=== PATIENT | female | born 1940 | race Caucasian/White ===

== ENCOUNTER 2019-10-19 13:14 | Inpatient (IN) | payer MEDICARE ==
[~2019-10-19] VITALS: Ht 165.1 cm; Wt 91.6 kg
[2019-10-19] MEDS ORDERED: SODIUM CHLORIDE 0.9% 1000ML 1,000 ML IV STA (13:35)
[2019-10-19] MEDS ORDERED: DIATRIZOATE MEGL/DIATRIZOA SOD 30 ML BTL PO ONE (13:49)
[2019-10-19 13:54] LABS: BASOPHILS % 0.2 % (0.0-1.0); EOSINOPHILS % 0.3 % (0.0-6.0); HEMATOCRIT 38.5 % (34.2-44.1); HEMOGLOBIN 12.5 g/dL (12.0-16.0); LYMPHOCYTES # (AUTO) 1.8 (1.0-3.2); LYMPHOCYTES % 20.4 % (18.0-39.1); MEAN CORPUSCULAR HEMOGLOBIN 29.8 pg (28-32); MEAN CORPUSCULAR HGB CONC 32.5 g/dL (31-35); MEAN CORPUSCULAR VOLUME 91.9 fL (81-99); MONOCYTES # (AUTO) 0.6 (0.2-0.8); MONOCYTES % 7.4 % (4.4-11.3); NEUTROPHILS # (AUTO) 6.2 (2.1-6.9); NEUTROPHILS % 71.1 % (38.7-80.0); PLATELET COUNT 287 x10e3/uL (140-360); RED BLOOD COUNT 4.19 x10e6/uL (3.6-5.1); RED CELL DISTRIBUTION WIDTH 11.8 % (11.7-14.4)
[2019-10-19] MEDS ORDERED: PANTOPRAZOLE 40 MG 10ML VIAL IV ONE (14:00)
[2019-10-19] MEDS ORDERED: ONDANSETRON HCL INJ 2MG/ML 2ML 2 MG/ML VIAL IV ONE (14:00)
[2019-10-19 14:03] LABS: BILIRUBIN,URINE NEGATIVE (NEGATIVE); CLARITY,URINE SL CLOUDY (CLEAR); COLOR,URINE YELLOW (YELLOW); KETONES,URINE TRACE (NEGATIVE); LEUKOCYTE ESTERASE ,URINE TRACE (NEGATIVE); NITRITE,URINE NEGATIVE (NEGATIVE); PROTEIN,URINE DIPSTICK NEGATIVE (NEGATIVE); URINE UROBILINOGEN 0.2 mg/dL (0.2 - 1)
[2019-10-19 14:13] LABS: BACTERIA,URINE MODERATE /HPF; EPITHELIAL CELLS,URINE FEW /LPF; RBC,URINE 0-5 /HPF (0-5)
[2019-10-19 14:17] LABS: ALANINE AMINOTRANSFERASE 19 IU/L (0-55); ALBUMIN 3.7 g/dL (3.5-5.0); ALBUMIN/GLOBULIN RATIO 1.3 (0.8-2.0); ALKALINE PHOSPHATASE 60 IU/L (40-150); ANION GAP 15.6 mmol/L (8-16); BLOOD UREA NITROGEN 8 mg/dL (7-26); BUN/CREATININE RATIO 12 (6-25); CALCIUM 9.3 mg/dL (8.4-10.2); CARBON DIOXIDE 24 mmol/L (22-29); CHLORIDE 88 mmol/L (98-107); CREATINE KINASE 1296 IU/L (29-168); CREATININE, SERUM 0.69 mg/dL (0.57-1.11); EST GLOMERULAR FILTRATION RATE > 60 ML/MIN (60-); GLUCOSE 225 mg/dL (74-118); LIPASE 4 U/L (8-78); MAGNESIUM 1.6 MG/DL (1.3-2.1); POTASSIUM 4.6 mmol/L (3.5-5.1); SODIUM 123 mmol/L (136-145)
--- NOTE | 2019-10-19 14:52 | Diagnostic Imaging Report ---
EXAMINATION: CHEST SINGLE (PORTABLE) INDICATION: Abdominal pain COMPARISON: None FINDINGS: LINES/TUBES:EKG leads overlie the chest. LUNGS:The lungs are moderately inflated. There is perihilar fullness and indistinctness of the pulmonary vasculature. PLEURA:No pleural effusion or pneumothorax. MEDIASTINUM:The cardiomediastinal silhouette is at the upper limits of normal for size. BONES/SOFT TISSUES:No acute osseous injury. ABDOMEN:No free air under the diaphragm. IMPRESSION: Mild pulmonary interstitial edema. Borderline heart size. Signed by: Sravani Ruiz MD on 10/19/2019 2:49 PM
[2019-10-19] MEDS ORDERED: IOPAMIDOL 370 MG/ML 200 ML INFUS..BTL INJ ONE (15:19)
[2019-10-19] MEDS ORDERED: SODIUM CHLORIDE 0.9% 50ML 50 ML ONE (15:19)
[2019-10-19] MEDS ORDERED: DEXTROSE 50% SYRINGE 50 ML IV PRN ×2 (15:30→19:00)
[2019-10-19] MEDS ORDERED: ONDANSETRON HCL INJ 2MG/ML 2ML 2 MG/ML VIAL IV PRN (15:30)
--- NOTE | 2019-10-19 15:43 | Diagnostic Imaging Report ---
EXAM: CT Abdomen and Pelvis WITH intravenous contrast INDICATION: Right lower quadrant abdominal pain COMPARISON: None. TECHNIQUE: Abdomen and pelvis were scanned utilizing a multidetector helical scanner from the lung base to the pubic symphysis after administration of IV contrast. Coronal and sagittal reformations were obtained. Routine protocol was performed. Scan was performed during portal venous phase. IV CONTRAST: 100mL of Isovue 370 ORAL CONTRAST: Gastrografin RADIATION DOSE: Total DLP: 730.8 mGy*cm Dose modulation, iterative reconstruction, and/or weight based adjustment of the mA/kV was utilized to reduce the radiation dose to as low as reasonably achievable. FINDINGS: LOWER THORAX: Normal. HEPATOBILIARY: No focal hepatic lesions. No biliary ductal dilatation. Status post cholecystectomy. SPLEEN: No splenomegaly. PANCREAS: No focal masses or ductal dilatation. ADRENALS: No adrenal nodules. KIDNEYS/URETERS: No hydronephrosis, stones, or solid mass lesions. Right lower pole exophytic simple cyst measures up to 5.3 cm. PELVIC ORGANS/BLADDER: Status post hysterectomy. PERITONEUM / RETROPERITONEUM: No free air or fluid. LYMPH NODES: No lymphadenopathy. VESSELS: Diffuse atherosclerotic calcifications of the nonaneurysmal abdominal aorta and major branches appear GI TRACT: Diverticulosis without CT evidence of diverticulitis. No abnormal bowel wall thickening. No bowel obstruction. Appendix not well visualized, however there are no inflammatory changes in the right lower quadrant to suggest appendicitis. Duodenal diverticulum. BONES AND SOFT TISSUES: No acute osseous injury. Mild diffuse osteopenia. Mild multilevel degenerative changes. No suspicious lytic or blastic lesions. Small umbilical hernia containing small amount of mesenteric fat. IMPRESSION: No acute findings in the abdomen or pelvis. Signed by: Sravani Ruiz MD on 10/19/2019 3:39 PM
[2019-10-19] MEDS: PIPER-TAZ 3.375 GM 50 ML IV SCH ×2 (15:55→21:10)
[2019-10-19] MEDS: SODIUM CHLORIDE 0.9% 1000ML 1,000 ML IV SCH (15:55)
[2019-10-19] MEDS ORDERED: INSULIN LISPRO 100 UNIT/1 ML 3ML VIAL SQ SCH (16:30)
--- OUTSIDE RECORDS SUMMARY | 2019-10-19 16:37 | XMS REPORT ---
Author Author [facility] Address Unknown Phone Unavailable Care Team Providers Care Mixing Technician Name Role Phone Harini POMPA Unavailable Unavailable Problems This patient has no known problems. Allergies, Adverse Reactions, Alerts This patient has no known allergies or adverse reactions. Medications This patient has no known medications. Results Test Description Test Time Test Comments Text Results Atomic Results Result Comments CT ABDOMEN/PELVIS W 2019-10-19 15:31:00 [place] [address] Patient Name: MENDEZ MAX MR #: [id number] : 1940 Age/Sex: 79/F Req #: [id number] [facility] Physician: Ordered by: ZI POMPA MD Report #: [id number] Location: ER Room/Bed: Procedure: [id number] CT/CT ABDOMEN/PELVIS W Exam Date: 10/19/19 Exam Time: 1503 REPORT STATUS: Signed EXAM: CT Abdomen and Pelvis WITH intravenous contrast INDICATION: Right lower quadrant abdominal pain COMPARISON: None. TECHNIQUE: Abdomen and pelvis were scanned utilizing a multidetector helical scanner from the lung base to the pubic symphysis after administration of IV contrast. Coronal and sagittal reformations were obtained. Routine protocol was performed. Scan was performed during portal venous phase. IV CONTR AST: 100mL of Isovue 370 ORAL CONTRAST: Gastrografin RADIATION DOSE: Total DLP: 730.8 mGy*cm Dose modulation, iterative reconstruction, and/or weight based adjustment of the mA/kV was utilized to reduce the radiation dose to as low as reasonably achievable. FINDINGS: LOWER THORAX: Normal. HEPATOBILIARY: No focal hepatic lesions. No biliary ductal dilatation. Status post cholecystectomy. SPLEEN: No splenomegaly. PANCREAS: No focal masses or ductal dilatation. ADRENALS: No adrenal nodules. KIDNEYS/URETERS: No hydronephrosis, stones, or solid mass lesions. Right lower pole exophytic simple cyst measures up to 5.3 cm. PELVIC ORGANS/BLADDER: Status post hysterectomy. PERITONEUM / RETROPERITONEUM: No free air or fluid. LYMPH NODES: No lymphadenopathy. VESSELS: Diffuse atherosclerotic calcifications of the nonaneurysmal abdominal aorta and major branches appear GI TRACT: Diverticulosis without CT evidence of diverticulitis. No abnormal bowel wall thickening. No bowel obstruction. Appendix not well visualized, however there are no inflammatory changes in the right lower quadrant to suggest appendicitis. Duodenal diverticulum. BONES AND SOFT TISSUES: No acute osseous injury. Mild diffuse osteopenia. Mild multilevel degenerative changes. No suspicious lytic or blastic lesions. Small umbilical hernia containing small amount of mesenteric fat. IMPRESSION: No acute findings in the abdomen or pelvis. Signed by: Bassem Ruiz MD on 10/19/2019 3:39 PM Dictated By: BASSEM RUIZ MD 38 Transcribed By: ANGY on 10/19/191538 COPY TO: ZI POMPA MD CHEST SINGLE (PORTABLE) 2019-10-19 14:48:00 [place] [address] Patient Name: MENDEZ MAX MR #: [id number] : 1940 Age/Sex: 79/F Req #: [id number] Adm Physician: Ordered by: ZI POMPA MD Report #: [id number] Location: ER Room/Bed: Procedure: [id number] DX/CHEST SINGLE (PORTABLE) Exam Date: 10/19/19 Exam Time: 1440 REPORT STATUS: Signed EXAMINATION: CHEST SINGLE (PORTABLE) INDICATION: Abdominal pain COMPARISON: None FINDINGS: LINES/TUBES:EKG leads overlie the chest. LUNGS:The lungs are moderately inflated. There is perihilar fullness and indistinctness of the pulmonary vasculature. PLEURA:No pleural effusion or pneumothorax. MEDIASTINUM:The cardiomediastinal silhouette is at the upper limits of normal for size. BONES/SOFT TISSUES:No acute osseous injury. ABDOMEN:No free air under the diaphragm. IMPRESSION: Mild pulmonary interstitial edema. Borderline heart size. Signed by: Bassem Ruiz MD on 10/19/2019 2:49 PM Dictated By: BASSEM RUIZ MD [id number] Transcribed By: ANGY on 10/19/19 1449 COPY TO: ZI POMPA MD
[2019-10-19] MEDS ORDERED: PRAVASTATIN SOD40 MG PO (16:49)
[2019-10-19] MEDS ORDERED: METFORMIN HCL500 M1 PO (16:49)
[2019-10-19] MEDS ORDERED: JANUVIA100 MG PO (16:49)
[2019-10-19] MEDS ORDERED: CARVEDILOL25 MG PO (16:49)
[2019-10-19] MEDS ORDERED: LOSARTAN POTASS50 MG PO (16:49)
[2019-10-19] MEDS ORDERED: PANTOPRAZOLE SO40 MG PO (16:49)
[2019-10-19] MEDS ORDERED: SYNTHROID50 MCG PO (16:49)
[2019-10-19] MEDS ORDERED: AGGRENOX 25 MG-1 CAP PO (16:50)
[2019-10-19] MEDS ORDERED: AMLODIPINE BESYL5 MG PO (16:50)
[2019-10-19] MEDS: INSULIN LISPRO 100 UNIT/1 ML 3ML VIAL SQ SCH (20:59)
[2019-10-19 21:40] LABS: CREATINE KINASE MB 13.4 ng/mL (0-5.0)
[2019-10-19 21:48] VITALS: BP 151/71
--- NOTE | 2019-10-19 22:30 | NUR ---
RECEIVED PATIENT FROM ER AOX4, NO SIGNS OF DISTRESS NOTED. IV FLUIDS ARE RUNNING AT ORDERED RATE AND PATIENT VOICES PAIN IN TOES FROM A RECENT FALL AT A LEVEL OF 5 AND WILL BE PROMPTLY MEDICATED. BED IS IN LOWEST POSITION, BOTH SIDE RAILS ARE UP, CALL LIGHT WITHIN EASY REACH, WILL CONTINUE TO MONITOR.
[2019-10-19] MEDS: PRAVASTATIN 20 MG TAB PO SCH (22:45)
[2019-10-19 23:13] VITALS: BP 151/71
[2019-10-19 23:15] VITALS: BP 151/71
[2019-10-19] MEDS: ACETAMINOPHEN 325 MG TAB PO PRN (23:56)
[2019-10-20] VITALS (8 sets, daily range): BP systolic 131–173; BP diastolic 61–72
[2019-10-20] MEDS: PIPER-TAZ 3.375 GM 50 ML IV SCH ×4 (03:50→21:45)
[2019-10-20] MEDS: SODIUM CHLORIDE 0.9% 1000ML 1,000 ML IV SCH (03:50)
[2019-10-20 05:33] LABS: BASOPHILS % 0.6 % (0.0-1.0); EOSINOPHILS # (AUTO) 0.1 (0.0-0.4); EOSINOPHILS % 1.4 % (0.0-6.0); HEMOGLOBIN 11.7 g/dL (12.0-16.0); LYMPHOCYTES # (AUTO) 2.9 (1.0-3.2); LYMPHOCYTES % 45.4 % (18.0-39.1); MEAN CORPUSCULAR HEMOGLOBIN 30.8 pg (28-32); MEAN CORPUSCULAR HGB CONC 32.5 g/dL (31-35); MEAN CORPUSCULAR VOLUME 94.7 fL (81-99); MONOCYTES # (AUTO) 0.8 (0.2-0.8); MONOCYTES % 11.6 % (4.4-11.3); NEUTROPHILS # (AUTO) 2.6 (2.1-6.9); NEUTROPHILS % 40.4 % (38.7-80.0); PLATELET COUNT 199 x10e3/uL (140-360); RED CELL DISTRIBUTION WIDTH 11.9 % (11.7-14.4)
[2019-10-20 05:53] LABS: ALANINE AMINOTRANSFERASE 16 IU/L (0-55); ALBUMIN 3.1 g/dL (3.5-5.0); ALBUMIN/GLOBULIN RATIO 1.2 (0.8-2.0); ALKALINE PHOSPHATASE 51 IU/L (40-150); ANION GAP 12.1 mmol/L (8-16); BILIRUBIN,DIRECT 0.3 mg/dL (0.0-0.5); BLOOD UREA NITROGEN < 5 mg/dL (7-26); CALCIUM 8.7 mg/dL (8.4-10.2); CARBON DIOXIDE 24 mmol/L (22-29); CHLORIDE 99 mmol/L (98-107); CHOL/HDL RATIO 4.2 (3.0-3.6); CHOLESTEROL 163 MD/DL (0-199); CREATININE, SERUM 0.61 mg/dL (0.57-1.11); EST GLOMERULAR FILTRATION RATE > 60 ML/MIN (60-); GLUCOSE 143 mg/dL (74-118); HDL CHOLESTEROL 39 MG/DL (40-60); LDL CHOLESTEROL 92 MG/DL (60-130); OSMOLALITY,SERUM 262 mOsm/kg (278-305); POTASSIUM 4.1 mmol/L (3.5-5.1); SODIUM 131 mmol/L (136-145); TRIGLYCERIDES 159 MG/DL (0-149)
[2019-10-20 06:02] LABS: BUN/CREATININE RATIO 8 (6-25)
[2019-10-20 06:14] LABS: THYROID STIMULATING HORMONE 2.528 uIU/mL (0.350-4.940)
[2019-10-20 06:31] LABS: CREATINE KINASE MB 6.7 ng/mL (0-5.0)
[2019-10-20] MEDS: LEVOTHYROXINE SODIUM 50 MCG TAB PO SCH (06:55)
[2019-10-20] MEDS: CARVEDILOL 12.5 MG TAB PO SCH ×2 (08:33→16:23)
[2019-10-20] MEDS: LOSARTAN POTASSIUM 25 MG TAB PO SCH (08:33)
[2019-10-20] MEDS: SITAGLIPTIN 100 MG TAB PO SCH (08:34)
[2019-10-20] MEDS: INSULIN LISPRO 100 UNIT/1 ML 3ML VIAL SQ SCH ×4 (08:34→21:45)
[2019-10-20] MEDS: PANTOPRAZOLE SOD 40 MG TABEC PO SCH (08:34)
[2019-10-20] MEDS: AGGRENOX PO SCH (08:36)
--- NOTE | 2019-10-20 08:45 | NUR ---
Received pt from previous shift pt resting no c/o pain. Pt informed of schedule for the day
[2019-10-20] MEDS ORDERED: DIPYRIDAMOLE PO SCH (09:00)
[2019-10-20] MEDS ORDERED: AMLODIPINE BESYLATE 5 MG TAB PO SCH (09:00)
[2019-10-20] MEDS ORDERED: NON-FORMULARY MEDICATION (Losartan Potassium 50 MG) PO SCH (09:00)
[2019-10-20] MEDS ORDERED: NON-FORMULARY MEDICATION (Pravastatin Sodium 40 MG) PO SCH (09:00)
[2019-10-20] MEDS ORDERED: ASPIRIN PO SCH (09:00)
[2019-10-20] MEDS ORDERED: [UNRECOGNIZED DRUG - OTHER] PO SCH (09:00)
[2019-10-20] MEDS ORDERED: NON-FORMULARY MEDICATION (Carvedilol 25 MG) PO SCH (09:00)
--- NOTE | 2019-10-20 09:00 | NUR ---
Echo at bedside
--- NOTE | 2019-10-20 15:25 | NUR ---
Attempted x2 to draw pt blood for lab, unsuccessful. Lab notified.
[2019-10-20 17:15] LABS: CREATINE KINASE MB 5.8 ng/mL (0-5.0)
--- NOTE | 2019-10-20 17:45 | NUR ---
dr pressley notified via phone of pt sodium level 132. no new orders obtained
--- NOTE | 2019-10-20 18:40 | NUR ---
pt sitting up visiting with family. pt in no distress, report given to oncoming shift
[2019-10-20] MEDS: PRAVASTATIN 20 MG TAB PO SCH (21:45)
--- NOTE | 2019-10-20 21:45 | NUR ---
PATIENT RESTING IN BED WITH BOTH EYES CLOSED, NO SIGNS OF RESPIRATORY DISTRESS NOTED. PATIENT VOICES NO PAIN AT THIS TIME AND COMPLAINS OF DIARRHEA. BED IS IN LOWEST POSITION, BOTH SIDE RAILS ARE UP, CALL LIGHT WITHIN EASY REACH, WILL CONTINUE TO MONITOR.
--- NOTE | 2019-10-20 23:22 | Consultation ---
DATE OF CONSULTATION: Nephrology Consultation REASON FOR CONSULTATION: Hyponatremia. HISTORY OF PRESENT ILLNESS: This is an 79-year-old female, who has apparently a history of chronic hyponatremia about two years ago after having some diarrhea, although she does report that she lives her normal sodium levels approximately 128 to 130, came in with underlying abdominal pain, nausea, vomiting, and diarrhea. The patient reportedly has had similar findings about two years ago in terms of her sodium being very low. She does not take any salt tabs or any other medications to elevate her sodium. The patient was seen and evaluated at bedside on the medical floor. She is currently doing well. No other complaints. Denies any [id number]-[id number] medications. No herbal supplements. Denies taking any diuretics at home. Denies drinking too much water. No reports of any hypothyroidism. The patient's vital signs were stable when I evaluated her. REVIEW OF SYSTEMS: Pertinent positives: Nausea, vomiting, abdominal pain, diarrhea. Pertinent negatives: Denies any chest pain, palpitation, dysuria, hematuria, frequency, urgency, lightheadedness, dizziness, fever, cough, or any other complaints. The rest of 14-point review of systems have been reviewed with the patient and are negative. ALLERGIES: SULFA AND HYDROCHLOROTHIAZIDE. HOME MEDICATIONS: 1. Amlodipine. 2. Coreg. 3. Aggrenox. 4. Levothyroxine. 5. Losartan. 6. Protonix. 7. Pravastatin. 8. Januvia. PAST MEDICAL HISTORY: Type 2 diabetes, hypertension, history of chronic hyponatremia. PAST SURGICAL HISTORY: Reports none. FAMILY HISTORY: Hypertension, diabetes. SOCIAL HISTORY: No drugs, no alcohol, does not smoke. Good social support. PHYSICAL EXAMINATION: VITAL SIGNS: Temperature is 96.3, pulse 65, respiratory rate is 18, blood pressure is 149/67, pulse ox 97% on room air. GENERAL: No acute distress, alert and oriented x3. Cooperative on examination. HEENT: Head normocephalic, atraumatic. Eyes; pupils are equal, round, and reactive to light bilaterally. Extraocular movements intact bilaterally. NECK: Supple. Good range of motion. Throat; no evidence of erythema or exudates in the posterior pharynx. Has poor dentition. PULMONARY: Clear to auscultation bilaterally. No wheezing, rales, or rhonchi. No crackles appreciated. CARDIOVASCULAR: Positive S1, S2. No murmurs, rubs, or gallops appreciated. ABDOMEN: Soft, nondistended, and nontender to palpation. Bowel sounds present. MUSCULOSKELETAL: Strength is 5/5 throughout. No evidence of any muscle deficits on examination. No weakness appreciated. NEUROLOGIC: Cranial nerves II through XII grossly intact. No evidence of any neurological deficits on exam. SKIN: Intact. Warm to touch. Good cap refill. PSYCHIATRIC: Normal affect and mood. EXTREMITIES: No edema. Good range of motion throughout. LABORATORY FINDINGS: Show white count is 6.4, hemoglobin 11.7, hematocrit 36, platelets of 199. Chemistry; sodium 131, on admission it was 123, now 131, potassium 4.1, chloride 99, bicarb 24, anion gap of 12, BUN is less than 5, creatinine is 0.61, glucose is 143. LFTs within normal range. Total bilirubin is 5.7, albumin is 3.1, LDL 92, TSH 2.5. Urinalysis negative. Urine cultures are pending, but no growth today. Stool cultures are pending. IMAGING STUDIES: Chest x-ray shows some mild pulmonary interstitial edema. CT abdomen and pelvis shows no acute findings in the abdomen or pelvis. IMPRESSION: 1. Hypotonic euvolemic hyponatremic. 2. Chronic hyponatremia. 3. Probable urinary tract infection. 4. Abdominal pain, nausea, vomiting. PLAN: At this time, from a renal standpoint, her sodium is much improved at 131. I did order a stat sodium level now and told the nurse to call me with the results. She is otherwise doing well. She is tolerating diet well. She is drinking fluids. She does report to me she has chronic hyponatremia, has been ongoing for the last two years of note. She said her sodium level usually is between 128 and 130. We will get urine lytes to eval and treat. No need for renal ultrasound at this time. Otherwise, we will continue same plan of care and monitor closely. MD URIEL Flores/RICH /[id number]
[2019-10-20] MEDS ORDERED: DICYCLOMINE HCL 10 MG CAP PO ONE (23:30)
[2019-10-21] VITALS (9 sets, daily range): BP systolic 119–180; BP diastolic 56–86
[2019-10-21] MEDS: PIPER-TAZ 3.375 GM 50 ML IV SCH ×4 (03:35→20:35)
[2019-10-21 03:59] LABS: BASOPHILS % 0.6 % (0.0-1.0); EOSINOPHILS # (AUTO) 0.1 (0.0-0.4); EOSINOPHILS % 1.6 % (0.0-6.0); HEMATOCRIT 37.5 % (34.2-44.1); HEMOGLOBIN 12.5 g/dL (12.0-16.0); LYMPHOCYTES # (AUTO) 2.9 (1.0-3.2); LYMPHOCYTES % 42.4 % (18.0-39.1); MEAN CORPUSCULAR HEMOGLOBIN 30.5 pg (28-32); MEAN CORPUSCULAR HGB CONC 33.3 g/dL (31-35); MONOCYTES # (AUTO) 0.8 (0.2-0.8); MONOCYTES % 11.2 % (4.4-11.3); NEUTROPHILS # (AUTO) 2.9 (2.1-6.9); NEUTROPHILS % 43.5 % (38.7-80.0); PLATELET COUNT 263 x10e3/uL (140-360); RED CELL DISTRIBUTION WIDTH 11.9 % (11.7-14.4)
[2019-10-21 04:15] LABS: ANION GAP 13.5 mmol/L (8-16); BLOOD UREA NITROGEN < 5 mg/dL (7-26); CALCIUM 9.3 mg/dL (8.4-10.2); CARBON DIOXIDE 25 mmol/L (22-29); CHLORIDE 100 mmol/L (98-107); CREATININE, SERUM 0.65 mg/dL (0.57-1.11); EST GLOMERULAR FILTRATION RATE > 60 ML/MIN (60-); GLUCOSE 136 mg/dL (74-118); POTASSIUM 3.5 mmol/L (3.5-5.1); SODIUM 135 mmol/L (136-145)
[2019-10-21 04:16] LABS: BUN/CREATININE RATIO 8 (6-25)
[2019-10-21 04:17] LABS: MEAN CORPUSCULAR VOLUME 91.5 fL (81-99)
[2019-10-21] MEDS: ACETAMINOPHEN 325 MG TAB PO PRN (05:56)
[2019-10-21] MEDS: LEVOTHYROXINE SODIUM 50 MCG TAB PO SCH (05:56)
--- NOTE | 2019-10-21 07:00 | NUR ---
RCD PT AT BED PT IS ALERT AND ORIENTED PT RESTING ON BED IV PATENT BED LOW AND LOCKED CALL LIGHT IN REACH
[2019-10-21] MEDS: INSULIN LISPRO 100 UNIT/1 ML 3ML VIAL SQ SCH ×4 (07:30→20:35)
[2019-10-21 08:08] LABS: WBC,FECAL (FECAL LACTOFERRIN) NEGATIVE (NEGATIVE)
[2019-10-21] MEDS: SITAGLIPTIN 100 MG TAB PO SCH (09:00)
[2019-10-21] MEDS: AMLODIPINE BESYLATE 5 MG TAB PO SCH ×2 (09:00→17:00)
[2019-10-21] MEDS: DICYCLOMINE HCL 10 MG CAP PO SCH ×3 (09:00→20:35)
[2019-10-21] MEDS: CARVEDILOL 12.5 MG TAB PO SCH ×2 (09:00→16:00)
[2019-10-21] MEDS: PANTOPRAZOLE SOD 40 MG TABEC PO SCH (09:00)
[2019-10-21] MEDS: LOSARTAN POTASSIUM 25 MG TAB PO SCH (09:00)
[2019-10-21] MEDS: AGGRENOX PO SCH (09:00)
--- NOTE | 2019-10-21 13:04 | Progress Note ---
DATE: 10/21/2019 Nephrology Progress Note SUBJECTIVE: The patient is doing well today with no complaints. The patient's sodium level much improved. PHYSICAL EXAMINATION: VITAL SIGNS: Temperature is 98, pulse 76, respiratory rate is 18, blood pressure 149/86, and pulse ox 97% on room air. GENERAL: Not in acute distress. Alert and oriented x3. Cooperative on examination. HEENT: Head; normocephalic, atraumatic. Eyes; pupils are equal, round, and reactive to light bilaterally. Extraocular movements intact bilaterally. Throat; no evidence of erythema or exudates in the posterior pharynx. Has poor dentition. NECK: Supple. Good range of motion. PULMONARY: Clear to auscultation bilaterally. No wheezing, no rales, no rhonchi, no crackles appreciated. CARDIOVASCULAR: Positive S1 and S2. No murmurs, rubs, or gallops appreciated. ABDOMEN: Soft, nondistended, and nontender to palpation. Bowel sounds present. MUSCULOSKELETAL: Strength is 5/5 throughout. No evidence of any muscle deficits on examination. No weakness appreciated. NEUROLOGIC: Cranial nerves II through XII grossly intact. No evidence of any neurological deficits on exam. SKIN: Intact. Warm to touch. Good cap refill. PSYCHIATRIC: Normal affect and mood. EXTREMITIES: No edema. Good range of motion throughout. LABORATORY FINDINGS: Show white count 6.2, hemoglobin 12.5, hematocrit is 37, and platelets of 263. Chemistry; sodium 135, potassium 3.5, chloride 100, bicarb 25, anion gap of 13, BUN is 5, creatinine is 0.65, and glucose 193. IMPRESSION: 1. Hypotonic hypovolemic hyponatremic. 2. Diarrhea, concerning for underlying viral gastroenteritis. PLAN: At this time, sodium level has improved to 135. Electrolytes are stable. We will continue with same plan of care and monitor very closely. IV fluids. Symptomatic treatment for now. Follow with the primary team. We will repeat labs in the morning. Replace electrolytes accordingly. MD URIEL Flores/MODMoira /[id number]
[2019-10-21 14:15] LABS: C DIFFICILE TOXIN A&B AMP PROB NEGATIVE (NEGATIVE)
--- NOTE | 2019-10-21 16:00 | NUR ---
PT FEEL BETTER TODAY SHE DONT HAVE ANY ABDOMINAL CRAMPING IN ABDOMEN 4 TIMES DIARRHOEA
--- NOTE | 2019-10-21 18:39 | NUR ---
PT RESTING ON BED BED SIDE REPORT GIVEN TO ONCOMING NURSE
[2019-10-21] MEDS: PRAVASTATIN 20 MG TAB PO SCH (20:35)
--- NOTE | 2019-10-21 20:35 | NUR ---
PATIENT IS AOX4, NO SIGNS OF RESPIRATORY DISTRESS NOTED. PATIENT VOICES NO PAIN AT THIS TIME AND STATES THAT SHE HAS BEEN GOING TO THE RESTROOM LESS SINCE TAKING MEDICATION. BED IS IN LOWEST POSITION, BOTH SIDE RAILS ARE UP, CALL LIGHT WITHIN EASY REACH, WILL CONTINUE TO MONITOR.
[2019-10-22] VITALS (9 sets, daily range): BP systolic 134–155; BP diastolic 63–83
[2019-10-22] MEDS: ACETAMINOPHEN 325 MG TAB PO PRN ×2 (01:59→21:15)
[2019-10-22] MEDS: PIPER-TAZ 3.375 GM 50 ML IV SCH ×4 (03:20→21:15)
[2019-10-22 05:18] LABS: BASOPHILS # (AUTO) 0.1 (0.0-0.1); BASOPHILS % 0.6 % (0.0-1.0); EOSINOPHILS # (AUTO) 0.2 (0.0-0.4); EOSINOPHILS % 1.7 % (0.0-6.0); HEMATOCRIT 40.6 % (34.2-44.1); HEMOGLOBIN 13.1 g/dL (12.0-16.0); LYMPHOCYTES # (AUTO) 3.8 (1.0-3.2); LYMPHOCYTES % 43.3 % (18.0-39.1); MEAN CORPUSCULAR HEMOGLOBIN 30.3 pg (28-32); MEAN CORPUSCULAR HGB CONC 32.3 g/dL (31-35); MEAN CORPUSCULAR VOLUME 93.8 fL (81-99); MONOCYTES # (AUTO) 0.8 (0.2-0.8); MONOCYTES % 9.4 % (4.4-11.3); NEUTROPHILS # (AUTO) 3.9 (2.1-6.9); NEUTROPHILS % 44.2 % (38.7-80.0); PLATELET COUNT 286 x10e3/uL (140-360); RED BLOOD COUNT 4.33 x10e6/uL (3.6-5.1); RED CELL DISTRIBUTION WIDTH 11.9 % (11.7-14.4)
[2019-10-22 05:43] LABS: ANION GAP 15.8 mmol/L (8-16); BLOOD UREA NITROGEN 5 mg/dL (7-26); BUN/CREATININE RATIO 7 (6-25); CALCIUM 9.1 mg/dL (8.4-10.2); CARBON DIOXIDE 23 mmol/L (22-29); CHLORIDE 97 mmol/L (98-107); CREATININE, SERUM 0.73 mg/dL (0.57-1.11); EST GLOMERULAR FILTRATION RATE > 60 ML/MIN (60-); GLUCOSE 162 mg/dL (74-118); POTASSIUM 3.8 mmol/L (3.5-5.1); SODIUM 132 mmol/L (136-145)
[2019-10-22] MEDS: LEVOTHYROXINE SODIUM 50 MCG TAB PO SCH (05:47)
[2019-10-22] MEDS: INSULIN LISPRO 100 UNIT/1 ML 3ML VIAL SQ SCH ×4 (07:35→22:00)
[2019-10-22] MEDS: CARVEDILOL 12.5 MG TAB PO SCH ×2 (08:45→16:59)
[2019-10-22] MEDS: DICYCLOMINE HCL 10 MG CAP PO SCH ×3 (08:45→21:15)
[2019-10-22] MEDS: AMLODIPINE BESYLATE 5 MG TAB PO SCH ×2 (08:45→16:59)
[2019-10-22] MEDS: SITAGLIPTIN 100 MG TAB PO SCH (08:55)
[2019-10-22] MEDS: PANTOPRAZOLE SOD 40 MG TABEC PO SCH (09:00)
[2019-10-22] MEDS: LOSARTAN POTASSIUM 25 MG TAB PO SCH (09:00)
[2019-10-22] MEDS: AGGRENOX PO SCH ×2 (09:00→15:57)
--- NOTE | 2019-10-22 19:26 | NUR ---
Patient received lying in bed. AAO x 4. Patient had no complaints of pain. Respirations even and non-labored. Safety measures in place. Patient instructed to call for assistance when needed. Call light within reach.
[2019-10-22] MEDS: PRAVASTATIN 20 MG TAB PO SCH (21:15)
[2019-10-23] VITALS (7 sets, daily range): BP systolic 130–187; BP diastolic 60–78
--- NOTE | 2019-10-23 03:10 | NUR ---
Blood specimen sent to lab .
[2019-10-23 03:13] LABS: BASOPHILS # (AUTO) 0.1 (0.0-0.1); BASOPHILS % 0.7 % (0.0-1.0); EOSINOPHILS # (AUTO) 0.2 (0.0-0.4); EOSINOPHILS % 1.8 % (0.0-6.0); HEMATOCRIT 38.8 % (34.2-44.1); LYMPHOCYTES # (AUTO) 4.9 (1.0-3.2); LYMPHOCYTES % 44.8 % (18.0-39.1); MEAN CORPUSCULAR HEMOGLOBIN 30.6 pg (28-32); MEAN CORPUSCULAR HGB CONC 33.5 g/dL (31-35); MEAN CORPUSCULAR VOLUME 91.3 fL (81-99); NEUTROPHILS # (AUTO) 4.6 (2.1-6.9); NEUTROPHILS % 42.8 % (38.7-80.0); PLATELET COUNT 299 x10e3/uL (140-360); RED BLOOD COUNT 4.25 x10e6/uL (3.6-5.1)
[2019-10-23] MEDS: PIPER-TAZ 3.375 GM 50 ML IV SCH ×4 (03:32→20:48)
[2019-10-23 03:34] LABS: ANION GAP 13.9 mmol/L (8-16); BLOOD UREA NITROGEN 8 mg/dL (7-26); BUN/CREATININE RATIO 11 (6-25); CALCIUM 9.3 mg/dL (8.4-10.2); CARBON DIOXIDE 24 mmol/L (22-29); CHLORIDE 97 mmol/L (98-107); CREATINE KINASE 144 IU/L (29-168); CREATININE, SERUM 0.75 mg/dL (0.57-1.11); EST GLOMERULAR FILTRATION RATE > 60 ML/MIN (60-); GLUCOSE 133 mg/dL (74-118); MAGNESIUM 1.7 MG/DL (1.3-2.1); POTASSIUM 3.9 mmol/L (3.5-5.1); SODIUM 131 mmol/L (136-145)
[2019-10-23] MEDS: LEVOTHYROXINE SODIUM 50 MCG TAB PO SCH (05:29)
--- NOTE | 2019-10-23 07:00 | NUR ---
Patient resting comfortably. Walking rounds done. Shift report given to oncoming nurse.
--- NOTE | 2019-10-23 07:02 | NUR ---
Walkning rounds complete and report recd for continuity of care
[2019-10-23] MEDS: INSULIN LISPRO 100 UNIT/1 ML 3ML VIAL SQ SCH ×4 (07:30→21:00)
[2019-10-23] MEDS: DICYCLOMINE HCL 10 MG CAP PO SCH ×5 (08:42→20:48)
[2019-10-23] MEDS: CARVEDILOL 12.5 MG TAB PO SCH ×2 (08:42→08:44)
[2019-10-23] MEDS: PANTOPRAZOLE SOD 40 MG TABEC PO SCH (08:43)
[2019-10-23] MEDS: LOSARTAN POTASSIUM 25 MG TAB PO SCH (08:43)
[2019-10-23] MEDS: AMLODIPINE BESYLATE 5 MG TAB PO SCH ×2 (08:43→08:45)
[2019-10-23] MEDS: SITAGLIPTIN 100 MG TAB PO SCH (08:45)
[2019-10-23] MEDS: AGGRENOX PO SCH (08:45)
[2019-10-23] MEDS: PRAVASTATIN 20 MG TAB PO SCH (08:46)
--- NOTE | 2019-10-23 11:49 | Progress Note ---
DATE: 10/23/2019 Nephrology Progress Note SUBJECTIVE: The patient is doing well today with no complaints. No overnight events. PHYSICAL EXAMINATION: VITAL SIGNS: Temperature 96.1, pulse 87, respiratory rate is 19, blood pressure is actually elevated at 187/78, pulse ox 96% on room air. GENERAL: Not in acute distress. Alert and oriented x3. Cooperative on examination. HEENT: Head; normocephalic, atraumatic. Eyes; pupils are equal, round, and reactive to light bilaterally. Extraocular movements intact bilaterally. Throat; no evidence of erythema or exudates in the posterior pharynx. Has poor dentition. NECK: Supple. Good range of motion. PULMONARY: Clear to auscultation bilaterally. No wheezing, no rales, no rhonchi, no crackles appreciated. CARDIOVASCULAR: Positive S1 and S2. No murmurs, rubs, or gallops appreciated. ABDOMEN: Soft, nondistended, and nontender to palpation. Bowel sounds present. MUSCULOSKELETAL: Strength is 5/5 throughout. No evidence of any muscle deficits on examination. No weakness appreciated. NEUROLOGIC: Cranial nerves 2 through 12 grossly intact. No evidence of any neurological deficits on exam. SKIN: Intact. Warm to touch. Good cap refill. PSYCHIATRIC: Normal affect and mood. EXTREMITIES: No edema. Good range of motion throughout. LABORATORY FINDINGS: Show white count is 10.8. Rest of the CBC is stable. Chemistry; sodium 131, potassium 3.9, chloride 97, bicarb 24, anion gap of 13, BUN is 8, creatinine is 0.75. Stool samples are pending for cultures. IMAGING STUDIES: None. IMPRESSION: 1. Hypotonic hypovolemic hyponatremic. 2. Diarrhea pending stool cultures. 3. Hypertension. PLAN: At this time, sodium level is stable. Electrolytes are stable. No further workup needed. I will go ahead and adjust antihypertensive medications accordingly by increasing the losartan to 100 mg daily and monitor her very closely. MD URIEL Flores/MODL /[id number]
[2019-10-24] VITALS (8 sets, daily range): BP systolic 123–171; BP diastolic 64–79
[2019-10-24] MEDS: PIPER-TAZ 3.375 GM 50 ML IV SCH ×3 (03:30→15:56)
[2019-10-24 05:05] LABS: BASOPHILS % 0.5 % (0.0-1.0); EOSINOPHILS # (AUTO) 0.2 (0.0-0.4); EOSINOPHILS % 2.5 % (0.0-6.0); HEMATOCRIT 37.4 % (34.2-44.1); HEMOGLOBIN 12.3 g/dL (12.0-16.0); LYMPHOCYTES # (AUTO) 3.3 (1.0-3.2); MEAN CORPUSCULAR HGB CONC 32.9 g/dL (31-35); MEAN CORPUSCULAR VOLUME 91.2 fL (81-99); MONOCYTES # (AUTO) 0.7 (0.2-0.8); MONOCYTES % 9.4 % (4.4-11.3); NEUTROPHILS # (AUTO) 3.4 (2.1-6.9); NEUTROPHILS % 43.9 % (38.7-80.0); PLATELET COUNT 295 x10e3/uL (140-360); RED CELL DISTRIBUTION WIDTH 11.9 % (11.7-14.4)
[2019-10-24 05:26] LABS: ANION GAP 12.8 mmol/L (8-16); BLOOD UREA NITROGEN 9 mg/dL (7-26); BUN/CREATININE RATIO 13 (6-25); CALCIUM 9.4 mg/dL (8.4-10.2); CARBON DIOXIDE 25 mmol/L (22-29); CHLORIDE 98 mmol/L (98-107); EST GLOMERULAR FILTRATION RATE > 60 ML/MIN (60-); GLUCOSE 158 mg/dL (74-118); POTASSIUM 3.8 mmol/L (3.5-5.1); SODIUM 132 mmol/L (136-145)
[2019-10-24] MEDS: LEVOTHYROXINE SODIUM 50 MCG TAB PO SCH (06:35)
--- NOTE | 2019-10-24 07:00 | NUR ---
Patient received sitting up in bed. AAO x 4. No acute distress noted. Call light within reach.
[2019-10-24] MEDS: INSULIN LISPRO 100 UNIT/1 ML 3ML VIAL SQ SCH ×3 (07:35→16:50)
[2019-10-24] MEDS ORDERED: LOSARTAN POTASSIUM 100 MG TAB PO SCH (09:00)
[2019-10-24] MEDS: DICYCLOMINE HCL 10 MG CAP PO SCH ×2 (10:13→15:56)
[2019-10-24] MEDS: AMLODIPINE BESYLATE 5 MG TAB PO SCH ×2 (10:14→15:57)
[2019-10-24] MEDS: PANTOPRAZOLE SOD 40 MG TABEC PO SCH (10:14)
[2019-10-24] MEDS: CARVEDILOL 12.5 MG TAB PO SCH ×2 (10:14→15:57)
[2019-10-24] MEDS: SITAGLIPTIN 100 MG TAB PO SCH (10:14)
[2019-10-24] MEDS: AGGRENOX PO SCH (10:17)
--- NOTE | 2019-10-24 13:58 | NUR ---
IMM letter delivered and explained to pt. She verbalized understanding. Signed copy placed in chart. Copy to pt's transition of care folder. Pt states she's ready to go home. Her son and daughter in law will provide transportation on discharge.
--- NOTE | 2019-10-24 16:45 | Progress Note ---
DATE: 10/24/2019 Nephrology Progress Note SUBJECTIVE: The patient is doing well today with no complaints. PHYSICAL EXAMINATION: VITAL SIGNS: Temperature is afebrile, blood pressure was elevated at 171/69, pulse is 90, respiratory rate is 20, pulse ox 97% on room air GENERAL: Not in acute distress. Alert and oriented x3. Cooperative on examination. HEENT: Head; normocephalic, atraumatic. Eyes; pupils are equal, round, and reactive to light bilaterally. Extraocular movements intact bilaterally. Throat; no evidence of erythema or exudates in the posterior pharynx. Has poor dentition. NECK: Supple. Good range of motion. PULMONARY: Clear to auscultation bilaterally. No wheezing, rales, or rhonchi, no crackles appreciated. CARDIOVASCULAR: Positive S1 and S2. No murmurs, rubs, or gallops appreciated. ABDOMEN: Soft, nondistended, and nontender to palpation. Bowel sounds present. MUSCULOSKELETAL: Strength is 5/5 throughout. No evidence of any muscle deficits on examination. No weakness appreciated. NEUROLOGIC: Cranial nerve II through XII grossly intact. No evidence of any neurological deficits on exam. SKIN: Intact. Warm to touch. Good cap refill. PSYCHIATRIC: Normal affect and mood. EXTREMITIES: No edema. Good range of motion throughout. LABORATORY DATA: Labs show sodium 132. The rest of chemistries are stable. CBC stable IMPRESSION: 1. Hypotonic euvolemic hyponatremia. 2. Diarrhea with negative stool culture. 3. Hypertension. PLAN: At this time sodium is much improved, electrolytes are stable. Continue to monitor very closely. Her blood pressure was elevated, but we just changed her losartan yesterday, which seems to have controlled her blood pressure yesterday. This morning the blood pressure was elevated. We will wait to see if she takes affect in terms of the losartan that was given. If not, we will add more medications. MD URIEL Flores/MODL /[id number]
[2019-10-24] MEDS ORDERED: COZAAR100 MG PO (17:03)
--- NOTE | 2019-10-24 18:09 | NUR ---
DR. HENDRIX CALLED. OKAY TO DC PATIENT PER SIMEON. ORDERS RECEIVED FROM SLADE DARLING TO DC PATIENT IF OKAY WITH DR. HENDRIX. ORDERS PUT IN AT THIS TIME.
--- NOTE | 2019-10-24 18:25 | NUR ---
Nutrition Screen Note RD Recommendation for Physician: -Continue ADA Diet Plan of Care: RD following, monitoring for tolerance and adequacy Nutrition reason for involvement: length of stay Primary Diagnose(s): abdominal, pain, dehydration, diarrhea, hyponatremia, rhabdomyolysis, and UTI PMH: type 2 diabetes, HTN, chronic hyponatremia Ht: 65 in Wt:202 lb BMI:33.6 kg/m2 IBW:[address] Assessment: (10/24/19) Chart reviewed. Labs and meds reviewed. Pt is an 79 year old female admitted with abdominal, pain, dehydration, diarrhea, hyponatremia, rhabdomyolysis, and UTI. Pt stated she has been eating all of her meals. Pt reported her wt has been stable and usually weighs 199 lbs. Pt currently has a wt of 202 lbs in chart. No N/V/D/C or chewing/swallowing issues reported at this time. Will continue to monitor Current Diet: ADA/low lactate Malnutrition Evaluation (10/24/19) The patient does not meet criteria for a specified degree of malnutrition at this time. Will re-evaluate at follow-up as appropriate. Diet Education Needs Assessment: Pt was interested in diabetic diet education Learner(s): pt Barriers: No barriers identified Cultural/Language Modifications: No cultural/language modifications noted Readiness: eager Method: explanation/ discussion, handout Topics: diabetic diet/carbohydrate counting Understanding/Compliance: pt verbalized understanding Nutrition Care Level: low Signed: Nancy Ha, RD, LD
--- NOTE | 2019-10-24 18:51 | NUR ---
PATIENTS SON CALLED AT THIS TIME TO NOTIFY HE IS ON HIS WAY TO BEHAVIORAL SCIENTIST PATIENT.
--- NOTE | 2019-10-24 19:01 | NUR ---
IV REMOVED AT THIS TIME WITHOUT COMPLICATION. TELEMETRY BOX REMOVED.
--- NOTE | 2019-10-24 19:45 | NUR ---
Patient given discharge instructions. Patient verbalized understanding. Learning barriers addressed. Patient transported to private auto via wheelchair. Vital wilmer WNL.
--- NOTE | 2019-10-25 17:51 | Discharge Summary ---
CONSULTING PHYSICIANS: Olvin Espinoza MD, GI; Ramiro Louie MD, Nephrology. CHIEF COMPLAINT: Abdominal pain, dehydration, diarrhea, rhabdo. ALLERGIES: HYDROCHLOROTHIAZIDE, SULFA. HOSPITAL COURSE: This is an 79-year-old female, who got admitted with complaints of abdominal pain, diarrhea for the past 3 days associated with nausea, but denied vomiting. Upon arrival to ER, the lab review showed sodium level of 128, which she received IV fluids. The patient got evaluated by GI and Nephrology. Currently, her lab review showed sodium of 132, which has been improved. Diarrhea resolved. All stool cultures and Clostridium difficile negative. She did get IV Zosyn for [address] of the abdomen showed no acute findings in the abdomen or pelvis. MEDICATIONS: She is advised to received home medications. 1. Norvasc 5 mg daily. 2. Coreg 25 mg twice daily. 3. Losartan 100 mg p.o. daily. 4. Levothyroxine 50 mcg daily. 5. Metformin 500 mg twice. 6. Protonix 40 mg daily. 7. Pravastatin 40 mg daily. 8. Januvia 100 mg daily. PHYSICAL EXAMINATION: VITAL SIGNS: Temperature 96.1, heart rate 90, blood pressure 148/66, respiratory rate 20, and oxygen saturation is 97%. GENERAL: No acute distress, alert and oriented. LUNGS: Clear to auscultation. CARDIOVASCULAR: Regular rate and rhythm. NECK: Supple. HEENT: Moist mucous membranes. ABDOMEN: Soft and nontender. EXTREMITIES: No edema. NEUROLOGICAL: Nonfocal. LABORATORY DATA: Labs from 10/24/2019, sodium is 132, potassium is 3.8, chloride 98, CO2 is 25, BUN 9, creatinine 0.70, glucose 158. WBC 7.68, hemoglobin 12.3, hematocrit 37.4, platelets are 295. DIAGNOSES: 1. Hypertension. 2. Type 2 diabetes. 3. Abdominal pain and diarrhea have been resolved. All stool cultures are negative. The patient upon discharge is stable. Follow up with primary care physician and GI as outpatient. Dictated by Shana Yi NP MD ABDON Sierra/RICH /[id number]
== END 2019-10-24 19:46 | disposition home or self-care (01) | DRG 558 ==
LOC: ER 13:32 → ERHOLD 15:21 → MED/SURG2 21:25
PROVIDERS: ADMIT Internal Medicine; ATTEND Internal Medicine
DX: M62.82 Rhabdomyolysis (principal); E87.1 Hypo-osmolality and hyponatremia; N30.00 Acute cystitis without hematuria; A08.4 Viral intestinal infection, unspecified; I10 Essential (primary) hypertension; Z88.2 Allergy status to sulfonamides; Z88.8 Allergy status to other drugs, medicaments and biological substances; E11.9 Type 2 diabetes mellitus without complications; K21.9 Gastro-esophageal reflux disease without esophagitis; E78.5 Hyperlipidemia, unspecified; E03.9 Hypothyroidism, unspecified; E86.0 Dehydration; Z80.42 Family history of malignant neoplasm of prostate; Z83.3 Family history of diabetes mellitus; Z79.84 Long term (current) use of oral hypoglycemic drugs
CPT/HCPCS: 36415; 71045; 74177; 80048; 80053; 80061; 81001; 82248; 82550; 82553; 82947; 82948; 83036; 83630; 83690; 83735; 83880; 83935; 84295; 84300; 84443; 84484; 84520; 85025; 87045; 87086; 87177; 87493; 93005; 93306; 96372; 99284; J2405; J2543; J7030; Q9967

== ENCOUNTER 2023-02-12 22:12 | Emergency (ER) | payer MEDICARE ==
[~2023-02-12] VITALS: Ht 165.1 cm; Wt 91.6 kg
[~2023-02-12 22:12] MED LIST: AGGRENOX 25 MG-1 CAP PO; AMLODIPINE BESYL5 MG PO; CARVEDILOL25 MG PO; COZAAR100 MG PO; JANUVIA100 MG PO; LOSARTAN POTASS50 MG PO; METFORMIN HCL500 M1 PO; PANTOPRAZOLE SO40 MG PO; PRAVASTATIN SOD40 MG PO; SYNTHROID50 MCG PO
[2023-02-12] MEDS ORDERED: METHOCARBAMOL750 MG PO (22:40)
[2023-02-12] MEDS ORDERED: NAPROSYN500 MG PO (22:40)
== END 2023-02-12 22:45 | disposition home or self-care (01) ==
LOC: ER 22:28
DX: M54.41 Lumbago with sciatica, right side (principal); I10 Essential (primary) hypertension; E11.9 Type 2 diabetes mellitus without complications; E78.5 Hyperlipidemia, unspecified; K21.9 Gastro-esophageal reflux disease without esophagitis; Z86.73 Personal history of transient ischemic attack (TIA), and cerebral infarction without residual deficits
CPT/HCPCS: 99282

== ENCOUNTER 2023-02-21 06:53 | Emergency (ER) | payer MEDICARE ==
[~2023-02-21] VITALS: Ht 165.1 cm; Wt 91.6 kg
[~2023-02-21 06:53] MED LIST changes: +METHOCARBAMOL750 MG PO; +NAPROSYN500 MG PO
== END 2023-02-21 10:56 | disposition home or self-care (01) ==
LOC: ER 06:58
DX: M54.41 Lumbago with sciatica, right side (principal); I83.93 Asymptomatic varicose veins of bilateral lower extremities; I10 Essential (primary) hypertension; E11.9 Type 2 diabetes mellitus without complications; E78.5 Hyperlipidemia, unspecified; K21.9 Gastro-esophageal reflux disease without esophagitis; Z86.73 Personal history of transient ischemic attack (TIA), and cerebral infarction without residual deficits
CPT/HCPCS: 93971; 99284